=== PATIENT | male | born 1930 | race Caucasian/White ===

== ENCOUNTER → 2017-10-09 | Outpatient (CLI) | payer OTHER | END | disposition home or self-care (01) | LOC: SHCH 13:59 | PROVIDERS: ATTEND Internal Medicine Cardiovascular Disease | DX: R60.0 Localized edema (principal) | CPT/HCPCS: 93925 ==

== ENCOUNTER 2018-06-01 12:32 | Emergency (ER) | payer OTHER ==
[2018-06-01 13:22] LABS: BASOPHILS % (AUTO) 0.4 % (0.0-5.0); HEMATOCRIT 37.8 % (42-54); LYMPHOCYTES % (AUTO) 5.2 % (21.0-51.0); MEAN CORPUSCULAR HEMOGLOBIN 29.8 pg (27.0-33.0); MEAN CORPUSCULAR HGB CONC 33.5 g/dL (32.0-36.0); MONOCYTES % (AUTO) 6.5 % (3.0-13.0); NEUTROPHILS % (AUTO) 87.9 % (40.0-77.0); PLATELET COUNT (AUTO) 249 K/uL (130-400); RED BLOOD CELL COUNT(AUTO) 4.24 MIL/uL (4.50-6.20); RED CELL DISTRIBUTION WIDTH 15.4 % (11.0-15.5); WHITE BLOOD COUNT (AUTO) 10.7 K/uL (4.8-10.8)
[2018-06-01 13:30] LABS: CREATININE 3.1 mg/dL (0.5-1.5); POTASSIUM 3.8 mmol/L (3.5-5.1)
[2018-06-01 13:34] LABS: ALBUMIN 3.6 g/dL (3.5-5.0); BILIRUBIN,TOTAL 0.9 mg/dL (0.2-1.0); TOTAL PROTEIN, SERUM 8.2 g/dL (6.0-8.3)
[2018-06-01 13:35] LABS: INR 0.98 (0.85-1.15); PARTIAL THROMBOPLASTIN TIME 25.1 SEC (26.3-35.5); PROTHROMBIN TIME 10.3 SEC (9.6-11.6)
[2018-06-01] MEDS ORDERED: SODIUM CHLORIDE 0.9% 500ML 500 ML IV ONE (14:20)
== END 2018-06-01 15:20 | disposition home or self-care (01) ==
LOC: EDH 12:32
DX: S40.011A Contusion of right shoulder, initial encounter (principal); S20.211A Contusion of right front wall of thorax, initial encounter; M54.2 Cervicalgia; R51 Headache; R42 Dizziness and giddiness; W18.39XA Other fall on same level, initial encounter; Y93.89 Activity, other specified; Y92.89 Other specified places as the place of occurrence of the external cause; Y99.8 Other external cause status
CPT/HCPCS: 36415; 70450; 71045; 72125; 80053; 84484; 85025; 85610; 85730; 86850; 86900; 86901; 93005; 96360; 99285; J7040

== ENCOUNTER 2019-02-16 05:30 | Day surgery (SDC) | payer OTHER ==
[2019-02-15 14:57] VITALS: BP 144/74
[2019-02-15 15:00] LABS: EOSINOPHILS % (AUTO) 3.2 % (0.0-8.0); HEMATOCRIT 40.5 % (42-54); LYMPHOCYTES % (AUTO) 24.7 % (21.0-51.0); MEAN CORPUSCULAR HEMOGLOBIN 29.3 pg (27.0-33.0); MEAN CORPUSCULAR HGB CONC 31.7 g/dL (32.0-36.0); MEAN CORPUSCULAR VOLUME 92.1 fL (79-99); MONOCYTES % (AUTO) 12.2 % (3.0-13.0); NEUTROPHILS % (AUTO) 58.9 % (40.0-77.0); NUCLEATED RED BLOOD CELLS 0.1 % (0.0-0.19); PLATELET COUNT (AUTO) 264 K/uL (130-400); WHITE BLOOD COUNT (AUTO) 5.7 K/uL (4.8-10.8)
[2019-02-15 15:08] LABS: CREATININE 1.5 mg/dL (0.5-1.5); POTASSIUM 4.8 mmol/L (3.5-5.1)
[2019-02-15 15:12] LABS: INR 1.02 (0.85-1.15); PARTIAL THROMBOPLASTIN TIME 26.6 SEC (26.3-35.5); PROTHROMBIN TIME 10.7 SEC (9.6-11.6)
[~2019-02-16] VITALS: Ht 176.5 cm; Wt 91.9 kg
[2019-02-16] VITALS (11 sets, daily range): BP systolic 115–144; BP diastolic 52–76
[~2019-02-16 05:30] MED LIST: APIX5TAB PO; ATOR40TA71 PO; BACL10TA PO; FERR325T22 PO; ISOS30TA6 PO; LISI-617 PO; NITR0.4T SL; PANT40TA25 PO; TAMS-1 PO
--- NOTE | 2019-02-16 06:17 | NUR ---
PATIENT ARRIVED ON UNIT ALONE, PATIENT STATES HIS FRIEND (LIDA MCCULLOUGH) IS WAITING IN LOBBY FOR HIM. PATIENT AAOX3, RESPIRATIONS UNLABORED, NO C/O PAIN AT THIS TIME. PROCEDURE EXPLAINED TO PATIENT AND PATIENT VERBALIZED UNDERSTANDING.
[2019-02-16] MEDS ORDERED: BUPIVACAINE/PF 0.25% 30ML VIAL IJ ONE (07:08)
[2019-02-16] MEDS ORDERED: LIDOCAINE HCL 1% MDV 50ML VIAL ONE (07:08)
[2019-02-16] MEDS ORDERED: CEFAZOLIN SODIUM 1 GM VIAL ONE (07:08)
[2019-02-16] MEDS ORDERED: SODIUM CHLORIDE 0.9% 1000ML 1,000 ML IV ONE (07:40)
[2019-02-16] MEDS ORDERED: ALUMINUM HYDROXIDE PO (07:54)
[2019-02-16] MEDS ORDERED: MAGNESIUM HYDROXIDE PO (07:54)
[2019-02-16] MEDS ORDERED: SIMETHICONE PO (07:54)
--- NOTE | 2019-02-16 08:30 | NUR ---
PATIENT TRANSFERRED: PATIENT TRANSFERRED TO [facility] JUSTICE VIA BED AND TAKEN BY JESSIKA SPEARS.
[2019-02-16] MEDS ORDERED: ACETAMINOPHEN 325 MG TAB PO PRN (09:30)
--- NOTE | 2019-02-16 09:35 | NUR ---
RETURNED FROM MOLECULAR PATHOLOGIST: PATIENT RETURNED FROM MOLECULAR PATHOLOGIST VIA BED BY JESSIKA SPEARS. PATIENT AAOX3, RESPIRATIONS UNLABORED. DRESSING TO RIGHT CHEST WALL IS DRY AND INTACT, NO DRAINAGE NOTED. NO C/O PAIN AT THIS TIME.
--- NOTE | 2019-02-16 09:50 | NUR ---
SITE CHECK: POST OP SITE TO RIGHT UPPER CHEST WALL IS DRY AND INTACT. NO DRAINAGE NOTED, AREA IS SOFT TO TOUCH AND NONTENDER. NO REDNESS OR SWELLING NOTED.
--- NOTE | 2019-02-16 12:20 | NUR ---
POST OP SITE: POST OP SITE TO RIGHT UPPER CHEST WALL WITH DRESSING IN PLACE. DRESSING IS DRY AND INTACT, NO REDNESS OR SWELLING NOTED. SITE IS SOFT AND NONTENDER WITH NO S/S OF INFECTION OR BLEEDING.
--- NOTE | 2019-02-16 15:20 | NUR ---
SITE CHECK: POST OP SITE TO UPPER RIGHT CHEST WALL WITH DRESSING IS DRY AND INTACT, NO REDNESS/SWELLING NOTED. AREA IS SOFT AND NONTENDER.
--- NOTE | 2019-02-16 16:50 | NUR ---
REPORT RECEIVED REPORT FROM JESSIKA ESCOBAR. SITE TO RIGHT UPPER CHEST SOFT TO TOUCH. NO BLEEDING, OOZING NOTED TO SITE. FRIEND HERE AT BEDSIDE. DISCHARGE INSTRUCTIONS GIVEN TO BOTH PT AND FRIEND ALONG WITH PRESCRIPTION. INSTRUCTIONS GIVEN ON IMPORTANCE OF TAKING ANTIBIOTICS. BOTH VERBALIZED UNDERSTANDING.
[2019-02-16] MEDS ORDERED: CEFAZOLIN SODIUM 1 GM VIAL IVP SCH (17:00)
== END 2019-02-16 17:15 | disposition home or self-care (01) ==
LOC: DAH 05:30
PROVIDERS: ATTEND Internal Medicine Cardiovascular Disease
DX: Z45.010 Encounter for checking and testing of cardiac pacemaker pulse generator [battery] (principal); I49.5 Sick sinus syndrome; I48.0 Paroxysmal atrial fibrillation; Z79.01 Long term (current) use of anticoagulants; Z79.899 Other long term (current) drug therapy; Z87.891 Personal history of nicotine dependence; Z72.89 Other problems related to lifestyle; Z98.890 Other specified postprocedural states
CPT/HCPCS: 33228; 36415; 80048; 85025; 85610; 85730; 93005; A4606; C1785; J0690 ×2; J3490 ×2; J7030

== ENCOUNTER 2019-08-05 05:35 | Day surgery (SDC) | payer OTHER ==
[~2019-08-05] VITALS: Ht 177.8 cm; Wt 90.7 kg
[~2019-08-05 05:35] MED LIST changes: +ALUMINUM HYDROXIDE PO; +MAGNESIUM HYDROXIDE PO; +SIMETHICONE PO
[2019-08-05] MEDS ORDERED: SODIUM CHLORIDE 0.9% 1000ML 1,000 ML IV ONE (05:56)
[2019-08-05 06:43] VITALS: BP 137/73
[2019-08-05] MEDS ORDERED: MIRTAZAPINE PO (06:55)
[2019-08-05] MEDS ORDERED: LIDOCAINE HCL 1% 20 ML VIAL ONE (07:16)
[2019-08-05] MEDS ORDERED: PROPOFOL 10 MG/ML 20ML VIAL IV ONE (07:16)
[2019-08-05 07:43] VITALS: BP 110/63
[2019-08-05 07:45] VITALS: BP 115/65
[2019-08-05 07:50] VITALS: BP 125/70
[2019-08-05 07:55] VITALS: BP 133/73
== END 2019-08-05 08:08 | disposition home or self-care (01) ==
LOC: DAH 05:35 → ENDO 05:35
PROVIDERS: ATTEND Internal Medicine Gastroenterology
DX: K21.9 Gastro-esophageal reflux disease without esophagitis (principal); K44.9 Diaphragmatic hernia without obstruction or gangrene; K22.8 Other specified diseases of esophagus; K29.70 Gastritis, unspecified, without bleeding; E78.00 Pure hypercholesterolemia, unspecified; Z79.899 Other long term (current) drug therapy; Z79.01 Long term (current) use of anticoagulants; Z95.0 Presence of cardiac pacemaker; Z98.890 Other specified postprocedural states; Z72.89 Other problems related to lifestyle
CPT/HCPCS: 43239; 88305; A4215; A4221; A4222; A4223; A4606; A4620; A4663; J2704; J7030